=== PATIENT | male | born 1960 | race Caucasian/White ===

== ENCOUNTER → 2021-12-02 | Outpatient (CLI) | payer BC ==
--- NOTE | 2021-11-27 10:09 | NUR ---
lmom with instructions, time, date and call back number.
[~2021-12-02] VITALS: Ht 180.3 cm; Wt 101.0 kg
[2021-12-02] VITALS (12 sets, daily range): BP systolic 123–1300; BP diastolic 81–110; PULSE 60–68; TEMP 99
[~2021-12-02] MED LIST: BYSTOLIC10 MG PO; LIPITOR 40MG TA40 MG PO; LYRICA 50MG CAP50 MG PO; TEMOVATE OINT30 GM TOP; ULORIC40 MG PO
--- NOTE | 2021-12-02 13:10 | NUR ---
Dr Urban here, talks with pt and procedure started
--- NOTE | 2021-12-02 13:25 | NUR ---
liver tissue specimans obtained in formulin. bandaid over right lower side.
== END ==
LOC: COL.RAD 11:41
DX: R74.8 Abnormal levels of other serum enzymes (principal); R93.2 Abnormal findings on diagnostic imaging of liver and biliary tract; F10.11 Alcohol abuse, in remission; D69.6 Thrombocytopenia, unspecified